=== PATIENT | female | born 1955 | race African-American/Black ===

== ENCOUNTER 2019-08-26 14:12 | Inpatient (IN) | payer BC, MEDICARE, OTHER ==
[~2019-08-26] VITALS: Ht 151.1 cm; Wt 50.8 kg
[2019-08-26 15:15] LABS: BASOPHILS % 1.1 % (0.0-2.0); EOSINOPHILS % 0.2 % (0.0-5.0); HEMATOCRIT. 43.2 % (36.0-48.0); LYMPHOCYTES % 28.1 % (20.0-50.0); MEAN CORPUSCULAR HEMOGLOBIN 32.9 pg (28.0-32.0); MEAN CORPUSCULAR VOLUME 94.6 fL (81.0-99.0); MEAN PLATELET VOLUME 9.5 fl (7.4-10.4); MONOCYTES % 5.4 % (2.0-8.0); NEUTROPHILS % 65.2 % (40.0-76.0); PLATELET 395 x1000/uL (130-400); RED BLOOD CELL COUNT 4.56 mill/uL (4.2-5.4); RED CELL DISTRIBUTION WIDTH 14.8 % (11.6-14.6)
[2019-08-26 15:20] LABS: CHLORIDE 101 mEq/L (98-107)
[2019-08-26] MEDS ORDERED: AMLODIPINE 10MG TABLET PO ONE (15:45)
[2019-08-26] MEDS ORDERED: LOSARTAN POTASSIUM 100 MG TABLET PO ONE (17:45)
[2019-08-26] MEDS ORDERED: HYDRALAZINE 20MG/ML VIAL IV ONE (19:00)
[2019-08-26] MEDS ORDERED: HYDRALAZINE 20MG/ML VIAL IV PRN (20:00)
[2019-08-26] MEDS ORDERED: ONDANSETRON HCL 4MG/2ML INJ IV PRN (20:00)
[2019-08-26] MEDS ORDERED: LORAZEPAM 2MG/ML CPJ IV PRN (20:00)
[2019-08-26] MEDS ORDERED: HYDROCODONE/ACETAMINOPHEN 10/325MG TABLET PO PRN (20:00)
[2019-08-26] MEDS ORDERED: IPRATROPIUM/ALBUTEROL 0.5-3(2.5)MG/3ML NEB HHN PRN (20:00)
[2019-08-26] MEDS ORDERED: GUAIFENESIN 200MG/10ML SUGAR FREE UDC PO PRN (20:00)
[2019-08-26] MEDS ORDERED: DIPHENHYDRAMINE 50MG/ML VIAL IV PRN (20:00)
[2019-08-26] MEDS ORDERED: MAGNESIUM/ALUMINUM HYDROXIDE/SIMETHICONE 30ML UDC PO PRN (20:00)
[2019-08-26] MEDS ORDERED: DOCUSATE SODIUM 100MG CAPSULE PO PRN (20:00)
[2019-08-26] MEDS ORDERED: ENOXAPARIN 40MG/0.4ML SYR SUBCUT SCH (20:00)
[2019-08-26] MEDS ORDERED: CLONIDINE 0.1MG TABLET PO PRN (20:00)
[2019-08-26] MEDS ORDERED: MORPHINE SULFATE 2 MG/ML CPJ (NOT FOR IM USE) IV PRN (20:00)
[2019-08-26 23:45] VITALS: BP 135/72
[2019-08-27 00:19] LABS: CREATINE KINASE MB FRACTION 1.4 ng/mL (0.5-3.6)
[2019-08-27] MEDS: SODIUM CHLORIDE 0.9% INJ 3ML FLUSH IVF SCH ×4 (00:37→22:26)
[2019-08-27] MEDS: HYDRALAZINE HCL 100MG TABLET PO SCH ×2 (02:16→06:00)
[2019-08-27 06:50] LABS: HEMATOCRIT. 44.5 % (36.0-48.0); HEMOGLOBIN. 15.3 g/dL (12.0-16.0); MEAN CORPUSCULAR HEMOGLOBIN 32.6 pg (28.0-32.0); MEAN PLATELET VOLUME 9.8 fl (7.4-10.4); PLATELET 400 x1000/uL (130-400); RED BLOOD CELL COUNT 4.68 mill/uL (4.2-5.4); RED CELL DISTRIBUTION WIDTH 14.7 % (11.6-14.6)
[2019-08-27 06:53] LABS: CHLORIDE 99 mEq/L (98-107)
[2019-08-27 07:06] LABS: CREATINE KINASE 55 IU/L (26-192)
[2019-08-27 07:08] LABS: CREATINE KINASE MB FRACTION 1.5 ng/mL (0.5-3.6)
[2019-08-27 08:00] VITALS: BP 120/70
[2019-08-27 08:16] LABS: T4 FREE 1.2 ng/dL (0.76-1.46)
[2019-08-27] MEDS: ENOXAPARIN 30MG/0.3ML SYR SUBCUT SCH (08:38)
[2019-08-27 12:00] VITALS: BP 127/68
[2019-08-27] MEDS: HYDRALAZINE HCL 50MG TABLET PO SCH ×2 (14:00→22:00)
[2019-08-27 14:20] LABS: PLATELET ESTIMATE NORMAL
[2019-08-27 15:11] LABS: CREATINE KINASE MB FRACTION 1.5 ng/mL (0.5-3.6)
[2019-08-27 20:00] VITALS: BP 179/93
[2019-08-27] MEDS: ATORVASTATIN CALCIUM 40MG TABLET PO SCH (20:14)
[2019-08-27] MEDS: CLONIDINE 0.2MG TABLET PO PRN (20:14)
[2019-08-27 21:00] VITALS: BP 87/50
[2019-08-28] VITALS: BP 109/69
[2019-08-28 00:20] LABS: *AMPHETAMINES SCREEN URINE NEGATIVE (NEGATIVE); *BARBITURATES SCREEN URINE NEGATIVE (NEGATIVE); *BENZODIAZEPINES SCREEN URINE NEGATIVE (NEGATIVE); CANNABINOID URINE SCREEN NEGATIVE (NEGATIVE); PHENCYCLIDINE URINE SCREEN NEGATIVE (NEGATIVE)
[2019-08-28 00:21] LABS: *COCAINE SCREEN URINE NEGATIVE (NEGATIVE); METHADONE URINE SCREEN NEGATIVE (NEGATIVE); OPIATES URINE SCREEN NEGATIVE (NEGATIVE)
[2019-08-28 00:36] LABS: CREATINE KINASE MB FRACTION 1.5 ng/mL (0.5-3.6)
[2019-08-28 04:00] VITALS: BP_SYST 101; BP_SYST 113; BP_DIAS 48; BP_DIAS 78
[2019-08-28] MEDS: SODIUM CHLORIDE 0.9% INJ 3ML FLUSH IVF SCH ×3 (05:35→21:20)
[2019-08-28] MEDS: HYDRALAZINE HCL 25MG TABLET PO SCH ×3 (05:35→21:20)
[2019-08-28 08:00] VITALS: BP 154/108
[2019-08-28] MEDS ORDERED: DIPHENHYDRAMINE 50MG/ML VIAL IV PRN (08:30)
[2019-08-28] MEDS: ASPIRIN 81MG TABLET PO SCH (08:39)
[2019-08-28] MEDS: ENOXAPARIN 30MG/0.3ML SYR SUBCUT SCH (08:40)
[2019-08-28] MEDS: CLOPIDOGREL 75MG TABLET PO SCH (08:40)
[2019-08-28 08:59] LABS: CREATINE KINASE MB FRACTION 1.3 ng/mL (0.5-3.6)
[2019-08-28 12:00] VITALS: BP 140/80
[2019-08-28] MEDS ORDERED: REGADENOSON 0.4 MG/5 ML IV ONE (14:15)
[2019-08-28 16:00] VITALS: BP 117/57
[2019-08-28 20:07] VITALS: BP 165/80
[2019-08-28] MEDS: ATORVASTATIN CALCIUM 40MG TABLET PO SCH (21:19)
[2019-08-29] VITALS: BP 115/61
[2019-08-29 04:26] VITALS: BP 128/68
[2019-08-29] MEDS: HYDRALAZINE HCL 25MG TABLET PO SCH ×3 (05:46→21:28)
[2019-08-29] MEDS: SODIUM CHLORIDE 0.9% INJ 3ML FLUSH IVF SCH ×3 (05:47→21:29)
[2019-08-29 08:00] VITALS: BP 117/45
[2019-08-29] MEDS: ASPIRIN 81MG TABLET PO SCH (09:47)
[2019-08-29] MEDS: CLOPIDOGREL 75MG TABLET PO SCH (09:47)
[2019-08-29] MEDS: ENOXAPARIN 40MG/0.4ML SYR SUBCUT SCH (09:49)
[2019-08-29] MEDS: ACETAMINOPHEN 325MG TABLET PO PRN ×2 (09:50→12:39)
[2019-08-29 12:00] VITALS: BP 135/61
[2019-08-29 16:00] VITALS: BP 117/60
[2019-08-29 20:00] VITALS: BP 163/87
[2019-08-29] MEDS: ATORVASTATIN CALCIUM 40MG TABLET PO SCH (21:28)
[2019-08-30] VITALS: BP 153/76
[2019-08-30 04:00] VITALS: BP 143/71
[2019-08-30] MEDS: SODIUM CHLORIDE 0.9% INJ 3ML FLUSH IVF SCH (05:15)
[2019-08-30] MEDS: HYDRALAZINE HCL 25MG TABLET PO SCH (05:15)
[2019-08-30 08:00] VITALS: BP 161/89
[2019-08-30] MEDS: CLONIDINE 0.2MG TABLET PO PRN (08:11)
[2019-08-30] MEDS: ASPIRIN 81MG TABLET PO SCH (09:00)
[2019-08-30] MEDS: CLOPIDOGREL 75MG TABLET PO SCH (09:00)
[2019-08-30 09:05] VITALS: BP 119/80
[2019-08-30] MEDS: ENOXAPARIN 40MG/0.4ML SYR SUBCUT SCH (11:48)
[2019-08-30 12:00] VITALS: BP 122/62
[2019-08-30 14:04] VITALS: BP 122/67
== END 2019-08-30 15:40 | disposition home or self-care (01) | DRG 305 ==
LOC: ER 14:12 → 6WST 19:42 → ENRESERV 22:40
PROVIDERS: ADMIT Internal Medicine; ATTEND Internal Medicine
DX: I16.1 Hypertensive emergency (principal); E78.5 Hyperlipidemia, unspecified; I11.9 Hypertensive heart disease without heart failure; F41.9 Anxiety disorder, unspecified; Z79.1 Long term (current) use of non-steroidal anti-inflammatories (NSAID); Z79.899 Other long term (current) drug therapy
CPT/HCPCS: 36415; 70551; 71045; 78452; 80053; 80061; 80305; 82550; 82553; 83036; 83880; 84439; 84443; 84484; 85025; 85379; 93005; 93017; 93306; 93970; 99285; A9500; J0360; J1200; J1650